=== PATIENT | female | born 1985 | race Caucasian/White ===

== ENCOUNTER 2017-09-24 05:26 | Inpatient (IN) | payer MEDICAID ==
[~2017-09-24] VITALS: Ht 160 cm; Wt 66.0 kg
[2017-09-24 05:30] VITALS: BP 117/72
[2017-09-24] MEDS ORDERED: OXYTOCIN 30U/ 0.9% NaCL 500ML 500 ML IV SCH (06:24)
[2017-09-24] MEDS ORDERED: LACTATED RINGERS 1,000 ML IV SCH ×3 (06:24→09:10)
[2017-09-24] MEDS ORDERED: LACTATED RINGERS 1,000 ML IVBOLUS ONE (06:30)
[2017-09-24] MEDS ORDERED: METOCLOPRAMIDE 5 MG/ML, 2ML IV ONE (06:30)
[2017-09-24] MEDS ORDERED: ONDANSETRON 2MG/ML, 2ML IVPush ONE (06:30)
[2017-09-24] MEDS ORDERED: SODIUM CITRATE/CITRIC ACID 30 ML UDC PO ONE (06:30)
[2017-09-24] MEDS ORDERED: NEWBORN KIT ONE (06:36)
[2017-09-24] MEDS ORDERED: METOCLOPRAMIDE 5 MG/ML, 2ML ONE (06:36)
[2017-09-24] MEDS ORDERED: SODIUM CITRATE/CITRIC ACID 30 ML UDC ONE (06:36)
[2017-09-24 06:55] LABS: BASOPHILS # (AUTO) 0.01 x10^3/uL (0-0.1); BASOPHILS % (AUTO) 0 % (0-1); EOSINOPHILS % (AUTO) 1 % (1-7); LYMPHOCYTES # (AUTO) 1.47 x10^3/uL (1-3.4); LYMPHOCYTES % (AUTO) 13 % (22-44); MD NO; MEAN CORPUSCULAR HGB CONC 33.2 g/dL (32.4-35.8); MEAN CORPUSCULAR VOLUME 99.3 fL (80-100); MEAN PLATELET VOLUME 9.7 fL (7.4-10.4); MONOCYTES # (AUTO) 1.04 x10^3/uL (0.2-0.8); MONOCYTES % (AUTO) 9 % (2-9); NEUTROPHILS % (AUTO) 78 % (42-75); PLATELET COUNT 168 x10^3/uL (130-400); RED BLOOD COUNT 3.53 x10^6/uL (3.82-5.3); RED CELL DISTRIBUTION WIDTH 14.1 % (9.6-15.2)
[2017-09-24] MEDS ORDERED: OXYTOCIN 30U/ 0.9% NaCL 500ML 500 ML ONE (07:04)
[2017-09-24] MEDS ORDERED: morphine SULFATE/PF 0.5 MG/ML, 10ML ONE (07:23)
[2017-09-24] MEDS ORDERED: WATER-INJECTION,STERILE 10 ML IV ONE (08:22)
[2017-09-24] MEDS ORDERED: ONDANSETRON 2MG/ML, 2ML ONE (08:22)
[2017-09-24] MEDS ORDERED: EPHEDRINE 50 MG/ML, 1ML ONE (08:22)
[2017-09-24] MEDS ORDERED: CEFAZOLIN 1,000 MG ONE (08:22)
[2017-09-24] MEDS ORDERED: PHENYLEPHRINE 10 MG/ML ONE (08:22)
[2017-09-24] MEDS ORDERED: OXYTOCIN 10 UNITS/ML, 1ML ONE (08:22)
[2017-09-24 08:57] LABS: MICROSCOPIC INDICATED
[2017-09-24 08:59] LABS: AMPHETAMINE SCREEN, URINE Positive (Negative); BARBITURATE SCREEN, URINE Negative (Negative); BENZODIAZEPINE SCREEN, URINE Negative (Negative); CANNABINOID SCREEN, URINE Positive (Negative); COCAINE SCREEN, URINE Negative (Negative); METHADONE SCREEN, URINE Negative (Negative); OPIATE SCREEN, URINE Negative (Negative)
[2017-09-24 09:06] LABS: CULTURE INDICATED? YES
[2017-09-24] MEDS: OXYTOCIN 30U/ 0.9% NaCL 500ML 500 ML IV SCH ×2 (09:10→19:10)
[2017-09-24] MEDS ORDERED: METHYLERGONOVINE 0.2 MG/ML IM PRN (09:30)
[2017-09-24] MEDS ORDERED: ONDANSETRON 2MG/ML, 2ML IV PRN (09:30)
[2017-09-24] MEDS ORDERED: CALCIUM CARBONATE 500 MG TAB.CHEW PO PRN (09:30)
[2017-09-24] MEDS ORDERED: OXYcodone IR 5MG TABLET PO PRN (09:30)
[2017-09-24] MEDS ORDERED: SIMETHICONE 80 MG CHEW TAB PO PRN (09:30)
[2017-09-24] MEDS ORDERED: ACETAMINOPHEN 325 MG TABLET PO PRN ×3 (09:30)
[2017-09-24 12:00] VITALS: BP 108/66
[2017-09-24] MEDS: IBUPROFEN 600 MG TABLET PO PRN (15:40)
[2017-09-24 16:15] VITALS: BP 111/74
[2017-09-24 16:40] LABS: BASOPHILS # (AUTO) 0.06 x10^3/uL (0-0.1); BASOPHILS % (AUTO) 1 % (0-1); EOSINOPHILS # (AUTO) 0.11 x10^3/uL (0-0.4); EOSINOPHILS % (AUTO) 1 % (1-7); LYMPHOCYTES # (AUTO) 1.26 x10^3/uL (1-3.4); LYMPHOCYTES % (AUTO) 12 % (22-44); MEAN CORPUSCULAR HGB CONC 33.3 g/dL (32.4-35.8); MEAN CORPUSCULAR VOLUME 99.3 fL (80-100); MEAN PLATELET VOLUME 9.1 fL (7.4-10.4); MONOCYTES # (AUTO) 0.61 x10^3/uL (0.2-0.8); MONOCYTES % (AUTO) 6 % (2-9); NEUTROPHILS # (AUTO) 8.82 x10^3/uL (1.8-6.8); NEUTROPHILS % (AUTO) 81 % (42-75); PLATELET COUNT 123 x10^3/uL (130-400); RED BLOOD COUNT 3.47 x10^6/uL (3.82-5.3); RED CELL DISTRIBUTION WIDTH 14.1 % (9.6-15.2)
[2017-09-24 16:41] LABS: MD NO
[2017-09-24 20:00] VITALS: BP 111/71
[2017-09-24] MEDS: OXYcodone/APAP 5/325MG TABLET PO PRN (22:26)
[2017-09-25] VITALS: BP 105/63
[2017-09-25] MEDS: OXYcodone/APAP 5/325MG TABLET PO PRN ×4 (03:51→21:01)
[2017-09-25] MEDS: DOCUSATE 100 MG CAPSULE PO PRN ×2 (03:51→21:01)
[2017-09-25 04:00] VITALS: BP 103/51
[2017-09-25] MEDS: OXYTOCIN 30U/ 0.9% NaCL 500ML 500 ML IV SCH ×2 (05:10→19:00)
[2017-09-25 08:10] VITALS: BP 108/66
[2017-09-25] MEDS: PRENATAL VIT/IRON/FA 1 EACH TABLET PO SCH (08:27)
[2017-09-25] MEDS: IBUPROFEN 600 MG TABLET PO PRN ×3 (08:27→21:01)
[2017-09-25 20:35] VITALS: BP 115/56
[2017-09-26] MEDS: OXYTOCIN 30U/ 0.9% NaCL 500ML 500 ML IV SCH ×2 (01:10→11:10)
[2017-09-26] MEDS: OXYcodone/APAP 5/325MG TABLET PO PRN ×3 (04:07→13:26)
[2017-09-26] MEDS: IBUPROFEN 600 MG TABLET PO PRN ×2 (04:07→13:26)
[2017-09-26 07:25] VITALS: BP 125/81
[2017-09-26] MEDS: DOCUSATE 100 MG CAPSULE PO PRN (08:02)
[2017-09-26] MEDS: PRENATAL VIT/IRON/FA 1 EACH TABLET PO SCH (08:02)
[2017-09-26] MEDS ORDERED: IBUP-1222 PO (14:11)
[2017-09-26] MEDS ORDERED: OXYC-302 PO (14:11)
== END 2017-09-26 14:50 | disposition home or self-care (01) | DRG 766 ==
LOC: LDOP 05:26 → LDIP 06:27 → 2NW 11:30
PROVIDERS: ADMIT Obstetrics & Gynecology; ATTEND Obstetrics & Gynecology
PROC: 10D00Z1 Extraction of Products of Conception, Low, Open Approach (ICD-10-PCS; principal; 2017-09-24)
PROC: 0UB70ZZ Excision of Bilateral Fallopian Tubes, Open Approach (ICD-10-PCS; 2017-09-24)
PROC: 0T9B70Z Drainage of Bladder with Drainage Device, Via Natural or Artificial Opening (ICD-10-PCS; 2017-09-24)
DX: O32.1XX0 Maternal care for breech presentation, not applicable or unspecified (principal); Z3A.37 37 weeks gestation of pregnancy; Z37.0 Single live birth; O99.334 Smoking (tobacco) complicating childbirth; F17.200 Nicotine dependence, unspecified, uncomplicated; J45.909 Unspecified asthma, uncomplicated; O99.52 Diseases of the respiratory system complicating childbirth; Z30.2 Encounter for sterilization; Z88.0 Allergy status to penicillin
CPT/HCPCS: 36415; 80307; 81001; 82803; 85025; 86850; 86900; 87086; 88302; 89060; 96374; 99285; J0690; J2274; J2405; J2370; J2590; J2765; J7120; Q0114

== ENCOUNTER 2017-10-02 21:36 | Inpatient (IN) | payer MEDICAID ==
[~2017-10-02] VITALS: Ht 160 cm; Wt 61.3 kg
[~2017-10-02 21:36] MED LIST: IBUP-1222 PO; OXYC-302 PO
[2017-10-02] MEDS ORDERED: NEXIUM (21:56)
[2017-10-02 22:27] LABS: MEAN CORPUSCULAR HEMOGLOBIN 33.5 pg (27.0-34.8); MEAN CORPUSCULAR HGB CONC 33.8 g/dL (32.4-35.8); MEAN CORPUSCULAR VOLUME 99.1 fL (80-100); MEAN PLATELET VOLUME 6.9 fL (7.4-10.4); PLATELET COUNT 341 x10^3/uL (130-400); RED BLOOD COUNT 3.08 x10^6/uL (3.82-5.3); RED CELL DISTRIBUTION WIDTH 14.3 % (9.6-15.2)
[2017-10-02] MEDS ORDERED: SODIUM CHLORIDE 0.9% 1,000 ML IV ONE (22:34)
[2017-10-02 22:39] LABS: ALANINE AMINOTRANSFERASE 10 U/L (12-78); ALBUMIN 2.1 g/dL (3.4-5.0); ANION GAP 8 mmol/L (5-15); CALCIUM 7.6 mg/dL (8.5-10.1); CHLORIDE 112 mmol/L (98-107); CREATININE 0.47 mg/dL (0.55-1.02)
[2017-10-02 22:41] LABS: ALKALINE PHOSPHATASE 95 U/L (45-117); BILIRUBIN,TOTAL 0.6 mg/dL (0.2-1.0)
[2017-10-02 22:42] LABS: BASOPHILS # (AUTO) 0.03 x10^3/uL (0-0.1); BASOPHILS % (AUTO) 0 % (0-1); EOSINOPHILS # (AUTO) 0.28 x10^3/uL (0-0.4); EOSINOPHILS % (AUTO) 1 % (1-7); LYMPHOCYTES # (AUTO) 1.83 x10^3/uL (1-3.4); LYMPHOCYTES % (AUTO) 9 % (22-44); MD SCAN; MONOCYTES # (AUTO) 1.14 x10^3/uL (0.2-0.8); MONOCYTES % (AUTO) 6 % (2-9); NEUTROPHILS # (AUTO) 17.32 x10^3/uL (1.8-6.8); NEUTROPHILS % (AUTO) 84 % (42-75)
[2017-10-02] MEDS ORDERED: ONDANSETRON 2MG/ML, 2ML IVPush PRN (23:00)
[2017-10-02] MEDS ORDERED: MORPHINE SULFATE 4 MG/ML, 1ML IVPush PRN (23:00)
[2017-10-02 23:58] VITALS: BP 128/76
[2017-10-03 00:10] VITALS: BP 128/76
[2017-10-03] MEDS: OXYcodone/APAP 5/325MG TABLET PO PRN ×4 (01:26→23:25)
[2017-10-03 08:51] VITALS: BP 120/73
[2017-10-03] MEDS ORDERED: CEFTRIAXONE 1,000 MG in SODIUM CHLORIDE 0.9% 50 ML IVPB SCH (09:00)
[2017-10-03 12:11] VITALS: BP 131/75
[2017-10-03] MEDS: metroNIDAZOLE 500 MG TABLET PO SCH ×2 (13:06→21:15)
[2017-10-03] MEDS: BUTALB/APAP/CAFFEINE 50MG/325MG/40MG PO PRN (13:06)
[2017-10-03 19:43] VITALS: BP 123/75
[2017-10-03] MEDS: PANTOPROZOLE 40MG TABLET PO SCH (21:15)
[2017-10-04 01:01] VITALS: BP 108/59
[2017-10-04] MEDS: metroNIDAZOLE 500 MG TABLET PO SCH ×3 (05:24→20:36)
[2017-10-04] MEDS: OXYcodone/APAP 5/325MG TABLET PO PRN ×4 (05:25→20:36)
[2017-10-04 05:45] LABS: HCT (SEDRATE) 33.1 % (34.6-47.8)
[2017-10-04 07:07] VITALS: BP 113/68
[2017-10-04] MEDS: PANTOPROZOLE 40MG TABLET PO SCH (09:30)
[2017-10-04] MEDS: CEFTRIAXONE 2 GM in SODIUM CHLORIDE 0.9% 50 ML IVPB SCH (09:30)
[2017-10-04] MEDS: DOCUSATE 100 MG CAPSULE PO SCH ×2 (10:53→20:36)
[2017-10-04] MEDS: BUTALB/APAP/CAFFEINE 50MG/325MG/40MG PO PRN (12:49)
[2017-10-04 12:52] VITALS: BP 114/72
[2017-10-04 19:34] VITALS: BP 123/74
[2017-10-05] MEDS: OXYcodone/APAP 5/325MG TABLET PO PRN ×4 (00:53→19:28)
[2017-10-05 01:35] VITALS: BP 133/64
[2017-10-05] MEDS: BUTALB/APAP/CAFFEINE 50MG/325MG/40MG PO PRN ×3 (02:06→20:44)
[2017-10-05 04:55] LABS: BASOPHILS # (AUTO) 0.07 x10^3/uL (0-0.1); BASOPHILS % (AUTO) 1 % (0-1); EOSINOPHILS # (AUTO) 0.34 x10^3/uL (0-0.4); EOSINOPHILS % (AUTO) 3 % (1-7); LYMPHOCYTES # (AUTO) 1.73 x10^3/uL (1-3.4); LYMPHOCYTES % (AUTO) 14 % (22-44); MD NO; MEAN CORPUSCULAR HGB CONC 33.4 g/dL (32.4-35.8); MEAN CORPUSCULAR VOLUME 98.9 fL (80-100); MEAN PLATELET VOLUME 7.4 fL (7.4-10.4); MONOCYTES # (AUTO) 0.92 x10^3/uL (0.2-0.8); MONOCYTES % (AUTO) 8 % (2-9); NEUTROPHILS # (AUTO) 8.94 x10^3/uL (1.8-6.8); NEUTROPHILS % (AUTO) 75 % (42-75); PLATELET COUNT 358 x10^3/uL (130-400); RED BLOOD COUNT 3.26 x10^6/uL (3.82-5.3); RED CELL DISTRIBUTION WIDTH 14.5 % (9.6-15.2)
[2017-10-05 05:06] LABS: ALBUMIN 2.1 g/dL (3.4-5.0); ANION GAP 9 mmol/L (5-15); CALCIUM 7.8 mg/dL (8.5-10.1); CHLORIDE 108 mmol/L (98-107)
[2017-10-05 05:08] LABS: ALANINE AMINOTRANSFERASE 11 U/L (12-78); ALKALINE PHOSPHATASE 91 U/L (45-117); BILIRUBIN,TOTAL 0.3 mg/dL (0.2-1.0); CREATININE 0.56 mg/dL (0.55-1.02)
[2017-10-05] MEDS: metroNIDAZOLE 500 MG TABLET PO SCH ×3 (05:18→20:44)
[2017-10-05 07:05] VITALS: BP 139/71
[2017-10-05] MEDS: PANTOPROZOLE 40MG TABLET PO SCH (07:59)
[2017-10-05] MEDS: DOCUSATE 100 MG CAPSULE PO SCH ×2 (07:59→20:44)
[2017-10-05] MEDS: CEFTRIAXONE 2 GM in SODIUM CHLORIDE 0.9% 50 ML IVPB SCH (09:24)
[2017-10-05 12:38] VITALS: BP 119/57
[2017-10-05] MEDS ORDERED: ONDANSETRON 2MG/ML, 2ML IVPush PRN (14:30)
[2017-10-05] MEDS: POLYETHYLENE GLYCOL 17 GM PACKET PO PRN (15:05)
[2017-10-05 18:10] LABS: TROPONIN I < 0.015 ng/mL (0.000-0.045)
[2017-10-05 18:16] LABS: THYROID STIMULATING HORMONE 0.718 mIU/L (0.358-3.740)
[2017-10-05 19:30] VITALS: BP 102/62
[2017-10-06 00:46] VITALS: BP 128/60
[2017-10-06] MEDS: OXYcodone/APAP 5/325MG TABLET PO PRN ×2 (01:26→08:57)
[2017-10-06] MEDS: metroNIDAZOLE 500 MG TABLET PO SCH ×3 (04:30→21:09)
[2017-10-06 07:58] VITALS: BP 137/75
[2017-10-06] MEDS: PANTOPROZOLE 40MG TABLET PO SCH (08:56)
[2017-10-06] MEDS: CEFTRIAXONE 2 GM in SODIUM CHLORIDE 0.9% 50 ML IVPB SCH (08:57)
[2017-10-06] MEDS: DOCUSATE 100 MG CAPSULE PO SCH ×2 (08:57→21:09)
[2017-10-06] MEDS: BUTALB/APAP/CAFFEINE 50MG/325MG/40MG PO PRN ×2 (11:35→16:50)
[2017-10-06 13:11] VITALS: BP 133/89
[2017-10-06] MEDS ORDERED: KETOROLAC 30 MG/1 ML IVPush PRN (16:00)
[2017-10-06 19:48] VITALS: BP 105/63
[2017-10-06] MEDS: POLYETHYLENE GLYCOL 17 GM PACKET PO PRN (21:20)
[2017-10-07 02:49] VITALS: BP 142/74
[2017-10-07] MEDS: metroNIDAZOLE 500 MG TABLET PO SCH ×3 (05:28→20:25)
[2017-10-07 07:23] VITALS: BP 115/74
[2017-10-07] MEDS: PANTOPROZOLE 40MG TABLET PO SCH (08:45)
[2017-10-07] MEDS: DOCUSATE 100 MG CAPSULE PO SCH ×2 (08:50→20:24)
[2017-10-07] MEDS: CEFTRIAXONE 2 GM in SODIUM CHLORIDE 0.9% 50 ML IVPB SCH (11:49)
[2017-10-07 13:11] VITALS: BP 133/69
[2017-10-07] MEDS: BUTALB/APAP/CAFFEINE 50MG/325MG/40MG PO PRN (15:04)
[2017-10-07 19:04] VITALS: BP 123/62
[2017-10-07 19:38] LABS: BASOPHILS # (AUTO) 0.05 x10^3/uL (0-0.1); BASOPHILS % (AUTO) 0 % (0-1); EOSINOPHILS % (AUTO) 4 % (1-7); LYMPHOCYTES # (AUTO) 1.99 x10^3/uL (1-3.4); LYMPHOCYTES % (AUTO) 17 % (22-44); MD NO; MEAN CORPUSCULAR HEMOGLOBIN 32.7 pg (27.0-34.8); MEAN CORPUSCULAR HGB CONC 32.9 g/dL (32.4-35.8); MEAN CORPUSCULAR VOLUME 99.3 fL (80-100); MEAN PLATELET VOLUME 7.2 fL (7.4-10.4); MONOCYTES # (AUTO) 0.81 x10^3/uL (0.2-0.8); MONOCYTES % (AUTO) 7 % (2-9); NEUTROPHILS # (AUTO) 8.18 x10^3/uL (1.8-6.8); NEUTROPHILS % (AUTO) 72 % (42-75); PLATELET COUNT 487 x10^3/uL (130-400); RED BLOOD COUNT 3.84 x10^6/uL (3.82-5.3); RED CELL DISTRIBUTION WIDTH 14.5 % (9.6-15.2)
[2017-10-07 19:55] LABS: HEMOGLOBIN A1C 5.5 % (4.2-6.3)
[2017-10-08 00:59] VITALS: BP 132/70
[2017-10-08] MEDS: metroNIDAZOLE 500 MG TABLET PO SCH ×3 (04:27→21:19)
[2017-10-08 07:45] VITALS: BP 110/67
[2017-10-08] MEDS: DOCUSATE 100 MG CAPSULE PO SCH ×2 (08:53→20:07)
[2017-10-08] MEDS: PANTOPROZOLE 40MG TABLET PO SCH (08:53)
[2017-10-08] MEDS: CEFTRIAXONE 2 GM in SODIUM CHLORIDE 0.9% 50 ML IVPB SCH (11:55)
[2017-10-08 13:08] VITALS: BP 109/73
[2017-10-08] MEDS: BUTALB/APAP/CAFFEINE 50MG/325MG/40MG PO PRN (15:36)
[2017-10-08] MEDS: ACYCLOVIR 200 MG CAPSULE PO SCH ×2 (16:25→21:19)
[2017-10-08 20:07] VITALS: BP 115/66
[2017-10-09 03:57] VITALS: BP 127/72
[2017-10-09] MEDS: metroNIDAZOLE 500 MG TABLET PO SCH ×3 (05:25→20:42)
[2017-10-09 06:03] LABS: BASOPHILS # (AUTO) 0.04 x10^3/uL (0-0.1); BASOPHILS % (AUTO) 0 % (0-1); EOSINOPHILS # (AUTO) 0.44 x10^3/uL (0-0.4); EOSINOPHILS % (AUTO) 4 % (1-7); LYMPHOCYTES # (AUTO) 2.11 x10^3/uL (1-3.4); LYMPHOCYTES % (AUTO) 20 % (22-44); MD NO; MEAN CORPUSCULAR HEMOGLOBIN 32.5 pg (27.0-34.8); MEAN CORPUSCULAR HGB CONC 32.8 g/dL (32.4-35.8); MEAN CORPUSCULAR VOLUME 99.1 fL (80-100); MEAN PLATELET VOLUME 7.6 fL (7.4-10.4); MONOCYTES % (AUTO) 7 % (2-9); NEUTROPHILS # (AUTO) 7.54 x10^3/uL (1.8-6.8); NEUTROPHILS % (AUTO) 70 % (42-75); PLATELET COUNT 440 x10^3/uL (130-400); RED BLOOD COUNT 3.83 x10^6/uL (3.82-5.3); RED CELL DISTRIBUTION WIDTH 14.6 % (9.6-15.2)
[2017-10-09 06:05] LABS: CHLORIDE 108 mmol/L (98-107)
[2017-10-09 06:15] LABS: ANION GAP 12 mmol/L (5-15); CALCIUM 8.4 mg/dL (8.5-10.1); CREATININE 0.66 mg/dL (0.55-1.02)
[2017-10-09 07:25] VITALS: BP 120/75
[2017-10-09] MEDS: DOCUSATE 100 MG CAPSULE PO SCH ×2 (08:36→20:41)
[2017-10-09] MEDS: ACYCLOVIR 200 MG CAPSULE PO SCH ×3 (08:37→20:42)
[2017-10-09] MEDS: PANTOPROZOLE 40MG TABLET PO SCH (08:37)
[2017-10-09] MEDS: CEFTRIAXONE 2 GM in SODIUM CHLORIDE 0.9% 50 ML IVPB SCH (11:16)
[2017-10-09 13:50] VITALS: BP 116/62
[2017-10-09 21:37] VITALS: BP 125/58
[2017-10-10 00:55] VITALS: BP 126/74
[2017-10-10] MEDS: metroNIDAZOLE 500 MG TABLET PO SCH ×2 (05:04→12:33)
[2017-10-10 07:35] VITALS: BP 113/62
[2017-10-10] MEDS: DOCUSATE 100 MG CAPSULE PO SCH (08:51)
[2017-10-10] MEDS: ACYCLOVIR 200 MG CAPSULE PO SCH ×2 (08:51→15:43)
[2017-10-10] MEDS: PANTOPROZOLE 40MG TABLET PO SCH (08:51)
[2017-10-10] MEDS: CEFTRIAXONE 2 GM in SODIUM CHLORIDE 0.9% 50 ML IVPB SCH (12:33)
[2017-10-10 13:45] VITALS: BP 114/59
[2017-10-10] MEDS ORDERED: CEFD300C37 PO (16:25)
[2017-10-10] MEDS ORDERED: METR500T PO (16:26)
== END 2017-10-10 18:00 | disposition home or self-care (01) | DRG 776 ==
LOC: ED 23:01 → EDIP 23:15 → 4EST 23:58 → 4WST 10-03 20:56
PROVIDERS: ADMIT Obstetrics & Gynecology; ATTEND Obstetrics & Gynecology
DX: O86.0 Infection of obstetric surgical wound (principal); E43 Unspecified severe protein-calorie malnutrition; J15.4 Pneumonia due to other streptococci; O99.325 Drug use complicating the puerperium; O99.355 Diseases of the nervous system complicating the puerperium; O98.33 Other infections with a predominantly sexual mode of transmission complicating the puerperium; O90.0 Disruption of cesarean delivery wound; F15.10 Other stimulant abuse, uncomplicated; O99.53 Diseases of the respiratory system complicating the puerperium; A60.00 Herpesviral infection of urogenital system, unspecified; O99.335 Smoking (tobacco) complicating the puerperium; F17.210 Nicotine dependence, cigarettes, uncomplicated; G43.909 Migraine, unspecified, not intractable, without status migrainosus; F12.90 Cannabis use, unspecified, uncomplicated; O90.81 Anemia of the puerperium; D64.9 Anemia, unspecified; O25.3 Malnutrition in the puerperium; J45.909 Unspecified asthma, uncomplicated; O99.63 Diseases of the digestive system complicating the puerperium; K21.9 Gastro-esophageal reflux disease without esophagitis; Z82.49 Family history of ischemic heart disease and other diseases of the circulatory system; Z88.0 Allergy status to penicillin; Z83.3 Family history of diabetes mellitus; Z68.30 Body mass index [BMI] 30.0-30.9, adult
CPT/HCPCS: 36415; 76857; 80048; 80053; 82947; 83036; 83735; 84100; 84443; 84484; 85025; 85651; 86140; 86694; 86695; 86696; 86704; 86706; 86803; 87070; 87184; 87205; 87340; 87806; 93005; 93306; 99285; J0696; J1885; J2405; G0475